=== PATIENT | female | born 1995 | race Caucasian/White ===

== ENCOUNTER 2017-02-16 15:21 | Emergency (ER) | payer SELFPAY ==
[~2017-02-16] VITALS: Ht 152.4 cm; Wt 53.0 kg
[~2017-02-16 15:21] MED LIST: CIPR500T4 PO; ULTR50TA PO
[2017-02-16 15:23] VITALS: BP 143/88; PULSE 106; RESP 16; TEMP 100.9; O2SAT 98
--- NOTE | 2017-02-16 15:39 | PD ---
HPI Chief Complaint: Flank/Kidney Pain Time Seen by Provider: 15:37 Travel History International Travel<30 days: No Contact w/Intl Traveler<30days: No Traveled to known affect area: No History of Present Illness HPI 21 YO F presents to the ED for evaluation of 6 day history of dysuria, mild nausea, right flank pain. Pain described as dull, constant, worsened by ambulation and certain movements. Gradual onset. Patient denies abdominal pain , changes in bowel habits, vaginal discharge or odor, history of kidney stones. LMP 01/19. Patient denies risk of . PFSH Past Medical History Hx Anticoagulant Therapy: No Anemia: Yes (BORDERLINE) Cardiovascular Problems: No Chemotherapy: No Cerebrovascular Accident: No Diabetes: No Respiratory: No LMP: 01/2017 : 0 Past Surgical History Hysterectomy: No Social History Alcohol Use: No Tobacco Use: No Substance Use: No Allergies-Medications (Allergen,Severity, Reaction): Coded Allergies: No Known Allergies (Verified , 02/16/17) Reported Meds & Prescriptions Reported Meds & Active Scripts Active Bactrim DS (Sulfamethoxazole-Trimethoprim) 800-160 Mg Tab 1 Tab PO BID Review of Systems Except as stated in HPI: all other systems reviewed are Neg Physical Exam Narrative GENERAL: Well-nourished, well-developed nontoxic appearing white female in no acute distress. SKIN: Focused skin assessment warm/dry. HEAD: Normocephalic. EYES: No scleral icterus. No injection or drainage. NECK: Supple, trachea midline. No JVD or lymphadenopathy. CARDIOVASCULAR: Regular rate and rhythm without murmurs, gallops, or rubs. RESPIRATORY: Breath sounds clear and equal bilaterally. No accessory muscle use. GASTROINTESTINAL: Abdomen soft, non-tender, nondistended. No suprapubic tenderness. Active bowel sounds. MUSCULOSKELETAL: No cyanosis, or edema. BACK: Nontender without obvious deformity. + Right-sided CVA tenderness. Data Data Last Documented VS Vital Signs Date Time Temp Pulse Resp B/P (MAP) Pulse Ox O2 Delivery O2 Flow Rate FiO2 02/16/17 15:23 100.9 106 16 143/88 (106) 98 Orders Orders Complete Blood Count With Diff (02/16/17 15:37) Comprehensive Metabolic Panel (02/16/17 15:37) Urinalysis - C+S If Indicated (02/16/17 15:37) Ed Urine Pregnancytest Poc (02/16/17 15:37) ^ Insert Iv (02/16/17 15:47) Sodium Chlor 0.9% 1000 Ml Inj (Ns 1000 M (02/16/17 16:00) Ceftriaxone Inj (Rocephin Inj) (02/16/17 16:00) Ibuprofen (Motrin) (02/16/17 16:00) Urine Culture (02/16/17 15:50) Potassium Chloride (Kcl) (02/16/17 17:30) Labs Laboratory Tests Test 02/16/17 15:50 White Blood Count 15.3 TH/MM3 Red Blood Count 4.13 MIL/MM3 Hemoglobin 11.9 GM/DL Hematocrit 35.7 % Mean Corpuscular Volume 86.5 FL Mean Corpuscular Hemoglobin 28.8 PG Mean Corpuscular Hemoglobin Concent 33.3 % Red Cell Distribution Width 12.8 % Platelet Count 219 TH/MM3 Mean Platelet Volume 8.0 FL Neutrophils (%) (Auto) 75.7 % Lymphocytes (%) (Auto) 12.5 % Monocytes (%) (Auto) 11.4 % Eosinophils (%) (Auto) 0.2 % Basophils (%) (Auto) 0.2 % Neutrophils # (Auto) 11.6 TH/MM3 Lymphocytes # (Auto) 1.9 TH/MM3 Monocytes # (Auto) 1.7 TH/MM3 Eosinophils # (Auto) 0.0 TH/MM3 Basophils # (Auto) 0.0 TH/MM3 CBC Comment DIFF FINAL Differential Comment Urine Color YELLOW Urine Turbidity HAZY Urine pH 6.5 Urine Specific [place] 1.014 Urine Protein 30 mg/dL Urine Glucose (UA) NEG mg/dL Urine Ketones TRACE mg/dL Urine Occult Blood TRACE Urine Nitrite POS Urine Bilirubin NEG Urine Urobilinogen LESS THAN 2.0 MG/DL Urine Leukocyte Esterase LARGE Urine RBC 5 /hpf Urine WBC /hpf Urine Squamous Epithelial Cells 5 /hpf Urine Bacteria MANY /hpf Urine Mucus FEW /lpf Microscopic Urinalysis Comment CULTURE INDICATED Blood Urea Nitrogen 6 MG/DL Creatinine 0.71 MG/DL Random Glucose 91 MG/DL Total Protein 7.5 GM/DL Albumin 3.4 GM/DL Calcium Level 8.6 MG/DL Alkaline Phosphatase 73 U/L Aspartate Amino Transf (AST/SGOT) 7 U/L Alanine Aminotransferase (ALT/SGPT) 15 U/L Total Bilirubin 0.2 MG/DL Sodium Level 138 MEQ/L Potassium Level 3.2 MEQ/L Chloride Level 105 MEQ/L Carbon Dioxide Level 25.0 MEQ/L Anion Gap 8 MEQ/L Estimat Glomerular Filtration Rate 102 ML/MIN [facility] Medical Decision Making Medical Screen Exam Complete: Yes Emergency Medical Condition: Yes Differential Diagnosis versus cystitis versus pyelonephritis versus less likely nephroureterolithiasis versus other Narrative Course 21 YO F presents to the ED for evaluation of 6 day history of dysuria, mild nausea, right flank pain. Pain described as dull, constant, worsened by ambulation and certain movements. Gradual onset. Patient denies abdominal pain , changes in bowel habits, history of kidney stones. LMP 01/19. Vitals reviewed. Temp 100.9, heart rate 106 on presentation. Physical exam reveals a nontoxic-appearing white female in no acute distress. There is right-sided CVA tenderness but the exam is otherwise unremarkable. IV established. Patient administered 1 L normal saline, 600mg ibuprofen by mouth. CBC: WBC 15.3 with a left shift. CMP: BUN 6, creatinine 0.71. Potassium 3.2 UA: Hazy, trace occult blood, positive nitrite, large leukocyte esterase, 5 WBCs , many bacteria. Culture pending. ED UPT: negative Patient was administered 1 g of Rocephin IV and 20 mEq of potassium by mouth. I discussed the results of the work up with the patient. We discussed admission, but I think she is a good candidate for outpatient treatment. She was prescribed Bactrim DS twice a day 7 days. She is instructed take the medication as prescribed, even if symptoms resolve. We discussed reasons to return to the ED. Patient mentioned that she has chronic migraines since an early age. She was provided information for the [facility]. She is stable and discharged home. Diagnosis Primary Impression: Pyelonephritis Additional Impression: Hypokalemia Referrals: Primary Care Physician Patient Instructions: General Instructions, Kidney Infection (ED) Med/Other Pt SpecificInfo: Prescription(s) given Scripts Sulfamethoxazole-Trimethoprim (Bactrim DS) 800-160 Mg Tab 1 TAB PO BID for Infection, #14 TAB 0 Refills Prov: Dylan Mcginnis MD 02/16/17 Disposition: 01 DISCHARGE HOME Condition: Stable Suze Martin Feb 16, 2017 15:39
[2017-02-16] MEDS ORDERED: cefTRIAXone INJ 1,000 MG in SODIUM CHLORIDE 0.9% INJ 100 ML IV ONE (16:00)
[2017-02-16] MEDS ORDERED: SODIUM CHLOR 0.9% 1000 ML INJ 1,000 ML IV ONE (16:00)
[2017-02-16] MEDS ORDERED: IBUPROFEN 600 MG TAB PO ONE (16:00)
[2017-02-16 16:23] LABS: AUTOMATED NEUTROPHIL # 11.6 TH/MM3 (1.8-7.7); BACTERIA, URINE MANY /hpf; BASOPHIL % 0.2 % (0.0-2.0); BLOOD, URINE TRACE (NEG); COMMENT (UR) CULTURE INDICATED; CULTURE IF INDICATED CULTURE INDICATED; EOSINOPHIL % 0.2 % (0.0-4.0); GLUCOSE,URINE NEG (NEG); HEMATOCRIT 35.7 % (35.0-46.0); HEMO FLAGS DIFF FINAL; KETONE, URINE TRACE mg/dL (NEG); LYMPH % 12.5 % (9.0-44.0); LYMPHOCYTE # 1.9 TH/MM3 (1.0-4.8); MEAN CELL VOLUME 86.5 FL (80.0-100.0); MEAN CORPUSCULAR HEMOGLOBIN 28.8 PG (27.0-34.0); MEAN CORPUSCULAR HGB CONC 33.3 % (32.0-36.0); MONO % 11.4 % (0.0-8.0); MUCUS URINE FEW /lpf (OCC); NEUT % 75.7 % (16.0-70.0); NITRITE,URINE POS (NEG); PH, URINE 6.5 (5.0-8.5); PLATELET COUNT 219 TH/MM3 (150-450); RED BLOOD COUNT 4.13 MIL/MM3 (4.00-5.30); RED CELL DISTRIBUTION WIDTH 12.8 % (11.6-17.2); SQUAMOUS EPITHELIAL CELL URINE 5 /hpf (0-5); URINE COLOR YELLOW (YELLW/STRAW); WHITE BLOOD COUNT 15.3 TH/MM3 (4.0-11.0)
[2017-02-16 16:35] LABS: ANION GAP 8 MEQ/L (5-15); AST (GOT) 7 U/L (15-37); BLOOD UREA NITROGEN 6 MG/DL (7-18); CHLORIDE 105 MEQ/L (98-107); GLOMERULAR FILTRATION RATE 102 ML/MIN (>89); POTASSIUM 3.2 MEQ/L (3.5-5.1); SODIUM (NA) 138 MEQ/L (136-145)
[2017-02-16 16:38] LABS: ALKALINE PHOSPHATASE 73 U/L (45-117); ALT (GPT) 15 U/L (10-53); TOTAL BILIRUBIN ADULT 0.2 MG/DL (0.2-1.0)
[2017-02-16] MEDS ORDERED: BACT800T5 PO (17:02)
[2017-02-16] MEDS ORDERED: POTASSIUM CHLORIDE 20 MEQ CONTROLLED RELEASE TAB PO ONE (17:30)
[2017-02-16 18:21] VITALS: BP 105/62; PULSE 89; RESP 16; O2SAT 100
== END 2017-02-16 19:16 | disposition home or self-care (01) ==
LOC: NEPE 15:21
DX: N12 Tubulo-interstitial nephritis, not specified as acute or chronic (principal); B96.20 Unspecified Escherichia coli [E. coli] as the cause of diseases classified elsewhere; E87.6 Hypokalemia; D64.9 Anemia, unspecified
CPT/HCPCS: 80053; 81001; 84703; 85025; 87077; 87086; 87186; 96365; 99284; J0696; J7030

== ENCOUNTER 2017-04-23 11:26 | Emergency (ER) | payer SELFPAY ==
[~2017-04-23] VITALS: Ht 152.4 cm; Wt 52.0 kg
[~2017-04-23 11:26] MED LIST changes: +BACT800T5 PO; -CIPR500T4 PO; -ULTR50TA PO
[2017-04-23 11:27] VITALS: BP 119/77; PULSE 131; RESP 20; TEMP 101.9; O2SAT 100
[2017-04-23] MEDS ORDERED: SODIUM CHLORIDE 0.9% FLUSH 10 ML FLUSH IVF PRN (11:45)
[2017-04-23] MEDS ORDERED: ONDANSETRON HCL 4 MG/2 ML VIAL IVP ONE (11:45)
[2017-04-23] MEDS ORDERED: MORPHINE SULFATE 4 MG/ML INJ IV PUSH ONE (11:45)
[2017-04-23] MEDS ORDERED: ACETAMINOPHEN 325 MG TAB PO ONE (12:00)
[2017-04-23 12:37] LABS: AUTOMATED NEUTROPHIL # 11.9 TH/MM3 (1.8-7.7); BASOPHIL % 0.2 % (0.0-2.0); HEMATOCRIT 39.9 % (35.0-46.0); HEMO FLAGS DIFF FINAL; LYMPH % 8.2 % (9.0-44.0); LYMPHOCYTE # 1.2 TH/MM3 (1.0-4.8); MEAN CELL VOLUME 84.8 FL (80.0-100.0); MEAN CORPUSCULAR HEMOGLOBIN 28.1 PG (27.0-34.0); MEAN CORPUSCULAR HGB CONC 33.1 % (32.0-36.0); MONO % 7.4 % (0.0-8.0); NEUT % 84.2 % (16.0-70.0); PLATELET COUNT 222 TH/MM3 (150-450); RED BLOOD COUNT 4.71 MIL/MM3 (4.00-5.30); RED CELL DISTRIBUTION WIDTH 13.3 % (11.6-17.2); WHITE BLOOD COUNT 14.1 TH/MM3 (4.0-11.0)
[2017-04-23 12:47] LABS: BACTERIA, URINE FEW /hpf; BLOOD, URINE SMALL (NEG); COMMENT (UR) CULTURE INDICATED; CULTURE IF INDICATED CULTURE INDICATED; GLUCOSE,URINE NEG (NEG); KETONE, URINE 150 mg/dL (NEG); MUCUS URINE FEW /lpf (OCC); NITRITE,URINE NEG (NEG); SQUAMOUS EPITHELIAL CELL URINE 1 /hpf (0-5); URINE COLOR YELLOW (YELLW/STRAW)
[2017-04-23] MEDS ORDERED: IOHEXOL 350 MG/ML 10 ML VIAL (for RAD DIAG) IVCONTRAST ONE (12:47)
[2017-04-23 13:00] LABS: BICARBONATE 24.5 MEQ/L (21.0-32.0); POTASSIUM 3.4 MEQ/L (3.5-5.1)
--- NOTE | 2017-04-23 13:01 | RADRPT ---
EXAM DATE/TIME: 04/23/2017 12:36 [facility] COMPARISON: CT ABDOMEN & PELVIS W CONTRAST, May 29, 2015, 15:25. INDICATIONS : Right back pain with vomiting. Fever. IV CONTRAST: 94 cc Omnipaque 350 (iohexol) IV ORAL CONTRAST: No oral contrast ingested. RADIATION DOSE: 4.94 CTDIvol (mGy) MEDICAL HISTORY : None. SURGICAL HISTORY : None. ENCOUNTER: Initial ACUITY: 2 days PAIN SCALE: 5/10 LOCATION: Right flank TECHNIQUE: Volumetric scanning of the abdomen and pelvis was performed. Using automated exposure control and ad justment of the mA and/or kV according to patient size, radiation dose was kept as low as reasonably achievable to obtain optimal diagnostic quality images. DICOM format image data is available electro nically for review and comparison. FINDINGS: LOWER LUNGS: The visualized lower lungs are clear. LIVER: Homogeneous density without lesion. There is no dilation of the biliary tree. No calcified gallston es. SPLEEN: Normal size without lesion. PANCREAS: Within normal limits. KIDNEYS: There is no evidence of hydronephrosis. The kidneys are functioning. The left kidney is unremarkable and stable compared to the prior examination. There is evidence of old cortical scarring involving th e mid to upper pole the right kidney. There is also some scarring along the lower pole of the right k idney. On today's examination there is some nonspecific decreased density involving the medial upper pole of the right kidney. No definite calcified renal stones are seen. The ureters are nondilated. ADRENAL GLANDS: Within normal limits. VASCULAR: There is no aortic aneurysm. BOWEL/MESENTERY: The stomach, small bowel, and colon demonstrate no acute abnormality. There is no free intraperitone al air. The appendix is unremarkable. No inflammatory changes are seen. There is a small amount of fr ee fluid in the cul-de-sac. ABDOMINAL WALL: Within normal limits. RETROPERITONEUM: There is no lymphadenopathy. BLADDER: No wall thickening or mass. REPRODUCTIVE: Small amount of free fluid in the cul-de-sac. Probable cysts associated with the left ovary. Otherwis e the uterus is unremarkable. The right adnexa is unremarkable. INGUINAL: There is no lymphadenopathy or hernia. MUSCULOSKELETAL: Within normal limits for patient age. CONCLUSION: 1. There is evidence of previous scarring involving the right kidney. This was demonstrated on gary henry's prior study from 2014. There is now a area of decreased density involving the medial upper pole t he right kidney suggestive of some subacute parenchymal infarction versus focal nephritis. This needs to be correlated with patient's physical, clinical exam and laboratory UA values.. 2. Small amount of free fluid in the cul-de-sac. 3. Otherwise, unremarkable abdomen and pelvis for patient's age compared to the prior study. Alexei Rogers MD on April 23, 2017 at 12:52 Board Certified Radiologist. This report was verified electronically.
[2017-04-23] MEDS ORDERED: cefTRIAXone INJ 1,000 MG in SODIUM CHLORIDE 0.9% INJ 100 ML IV ONE (13:15)
[2017-04-23 13:20] VITALS: BP 103/56; PULSE 95; RESP 16; TEMP 99.6; O2SAT 99
--- NOTE | 2017-04-23 13:24 | PD ---
HPI Chief Complaint: Flank/Kidney Pain Time Seen by Provider: 12:00 Travel History International Travel<30 days: No Contact w/Intl Traveler<30days: No Traveled to known affect area: No History of Present Illness HPI 21-year-old female presents to the emergency room for evaluation of right-sided flank pain, nausea, and vomiting since yesterday. Patient states she woke up with it yesterday. Reports associated chills and night sweats but denies any objective fevers. Patient has history of recurrent urinary tract infections and pyelonephritis. She denies dysuria, urgency, frequency, diarrhea, vaginal discharge. Denies chronic medical conditions or daily medications. Last menstrual cycle was 3 weeks ago. She is due next week. PFSH Past Medical History Hx Anticoagulant Therapy: No Anemia: Yes (BORDERLINE) Cardiovascular Problems: No Chemotherapy: No Cerebrovascular Accident: No Diabetes: No Diminished Hearing: No Genitourinary: Yes (UTI ) Respiratory: No Immunizations Current: No Tetanus Vaccination: < 5 Years ?: Not LMP: 03/31/17 : 0 Past Surgical History Surgical History: No Previous Surgery Hysterectomy: No Social History Alcohol Use: No Tobacco Use: No Substance Use: No Allergies-Medications (Allergen,Severity, Reaction): Coded Allergies: No Known Allergies (Verified Adverse Reaction, Unknown, 04/23/17) Reported Meds & Prescriptions Reported Meds & Active Scripts Active No Active Prescriptions or Reported Medications Review of Systems Except as stated in HPI: all other systems reviewed are Neg Physical Exam Narrative GENERAL: Well-nourished, well-developed female in no acute distress. Afebrile. Ambulatory. SKIN: Focused skin assessment warm/dry. HEAD: Normocephalic. EYES: No scleral icterus. No injection or drainage. NECK: Supple, trachea midline. No JVD or lymphadenopathy. CARDIOVASCULAR: Regular rate and rhythm without murmurs, gallops, or rubs. RESPIRATORY: Breath sounds equal bilaterally. No accessory muscle use. GASTROINTESTINAL: Abdomen soft, non-tender, nondistended. BACK: Nontender without obvious deformity. Moderate right-sided CVA tenderness. Data Data Last Documented VS Vital Signs Date Time Temp Pulse Resp B/P (MAP) Pulse Ox O2 Delivery O2 Flow Rate FiO2 04/23/17 11:27 101.9 131 20 119/77 (91) 100 Room Air Orders Orders Complete Blood Count With Diff (04/23/17 11:42) Basic Metabolic Panel (Bmp) (04/23/17 11:42) Urinalysis - C+S If Indicated (04/23/17 11:42) Iv Access Insert/Monitor (04/23/17 11:42) Sodium Chloride 0.9% Flush (Ns Flush) (04/23/17 11:45) Ondansetron Inj (Zofran Inj) (04/23/17 11:45) Morphine Inj (Morphine Inj) (04/23/17 11:45) Ct Abd/Pel W Iv Contrast(Rout) (04/23/17 11:42) Acetaminophen (Tylenol) (04/23/17 12:00) Ed Urine Pregnancytest Poc (04/23/17 12:05) Urine Culture (04/23/17 11:45) Iohexol 350 Inj (Omnipaque 350 Inj) (04/23/17 12:47) Ceftriaxone Inj (Rocephin Inj) (04/23/17 13:15) Labs Laboratory Tests Test 04/23/17 11:45 White Blood Count 14.1 TH/MM3 Red Blood Count 4.71 MIL/MM3 Hemoglobin 13.2 GM/DL Hematocrit 39.9 % Mean Corpuscular Volume 84.8 FL Mean Corpuscular Hemoglobin 28.1 PG Mean Corpuscular Hemoglobin Concent 33.1 % Red Cell Distribution Width 13.3 % Platelet Count 222 TH/MM3 Mean Platelet Volume 8.2 FL Neutrophils (%) (Auto) 84.2 % Lymphocytes (%) (Auto) 8.2 % Monocytes (%) (Auto) 7.4 % Eosinophils (%) (Auto) 0.0 % Basophils (%) (Auto) 0.2 % Neutrophils # (Auto) 11.9 TH/MM3 Lymphocytes # (Auto) 1.2 TH/MM3 Monocytes # (Auto) 1.0 TH/MM3 Eosinophils # (Auto) 0.0 TH/MM3 Basophils # (Auto) 0.0 TH/MM3 CBC Comment DIFF FINAL Differential Comment Urine Color YELLOW Urine Turbidity HAZY Urine pH 6.0 Urine Specific [place] 1.020 Urine Protein 30 mg/dL Urine Glucose (UA) NEG mg/dL Urine Ketones 150 mg/dL Urine Occult Blood SMALL Urine Nitrite NEG Urine Bilirubin NEG Urine Urobilinogen LESS THAN 2.0 MG/DL Urine Leukocyte Esterase LARGE Urine RBC 9 /hpf Urine WBC 53 /hpf Urine Squamous Epithelial Cells 1 /hpf Urine Bacteria FEW /hpf Urine Mucus FEW /lpf Microscopic Urinalysis Comment CULTURE INDICATED Blood Urea Nitrogen 7 MG/DL Creatinine 0.71 MG/DL Random Glucose 103 MG/DL Calcium Level 8.9 MG/DL Sodium Level 133 MEQ/L Potassium Level 3.4 MEQ/L Chloride Level 99 MEQ/L Carbon Dioxide Level 24.5 MEQ/L Anion Gap 10 MEQ/L Estimat Glomerular Filtration Rate 102 ML/MIN [facility] Medical Decision Making Medical Screen Exam Complete: Yes Emergency Medical Condition: Yes Medical Record Reviewed: Yes Differential Diagnosis Pyelonephritis, UTI, muscle spasm, kidney stone Narrative Course 21-year-old female presents to the emergency room for evaluation of right-sided flank pain, nausea, and vomiting since yesterday morning. She had associated night sweats last night but has not taken her temperature. Patient denies vaginal discharge or significant abdominal pain. Denies dysuria, urgency, or frequency. She is febrile and tachycardic in the emergency room. Patient was given Tylenol for her fever. IV access established and basic labs obtained. CBC shows mild leukocytosis. CMP is unremarkable. UA shows evidence of infection. CT abdomen and pelvis shows radiographic evidence of pyelonephritis. Patient is given IV Rocephin. She will be discharged with prescription for Cipro as this has better kidney penetration. Told to follow up with her primary care physician or return for worsening symptoms. She understands and agrees to plan. Diagnosis Primary Impression: Pyelonephritis Referrals: [facility] Primary Care Physician Urologist Additional Instructions: Rest and drink plenty of fluids. Cipro as directed, until gone. Follow-up with a primary care physician. Return to the emergency room for worsening symptoms. Med/Other Pt SpecificInfo: Prescription(s) given Scripts No Active Prescriptions or Reported Meds Disposition: 01 DISCHARGE HOME Condition: Stable Suad Gil Apr 23, 2017 13:24
[2017-04-23] MEDS ORDERED: CIPR-9 PO (13:26)
[2017-04-23] MEDS ORDERED: ZOFR4TAB3 SL (13:27)
[2017-04-23] MEDS ORDERED: IBUP1TAB7 PO (13:33)
[2017-04-23] MEDS ORDERED: KETOROLAC TROMETHAMINE 30 MG/ML (IVP) VIAL IV PUSH ONE (13:45)
== END 2017-04-23 14:15 | disposition home or self-care (01) ==
LOC: NEPD 11:26
DX: N12 Tubulo-interstitial nephritis, not specified as acute or chronic (principal); B96.20 Unspecified Escherichia coli [E. coli] as the cause of diseases classified elsewhere; R11.2 Nausea with vomiting, unspecified; R00.0 Tachycardia, unspecified
CPT/HCPCS: 74177; 80048; 81001; 84703; 85025; 87077; 87086; 87186; 96365; 96375; 99285; J0696; J1885; J2270; J2405; Q9967